=== PATIENT | female | born 1985 | race American Indian/Alaskan Native ===

== ENCOUNTER 2017-10-06 09:44 | Emergency (ER) | payer MEDICAID ==
[2017-10-06] MEDS ORDERED: ATIVAN IV ONE (09:49)
[2017-10-06] MEDS ORDERED: ATIVAN ONE (09:52)
[2017-10-06 10:29] LABS: Basophils % (Auto) 0.3 % (0.0-1.8); Eosinophils % (Auto) 0.3 % (0.0-4.3); Hematocrit 27.2 % (30.3-42.9); Hemoglobin 8.3 gm/dl (10.1-14.3); Lymphocytes # (Auto) 0.7 K/mm3 (1.2-5.4); Mean Corpuscular HGB Conc 31 % (30-34); Monocytes # (Auto) 0.3 K/mm3 (0.0-0.8); Monocytes % (Auto) 3.7 % (0.0-7.3); Platelet Count 622 K/mm3 (140-440); Red Blood Count 4.53 M/mm3 (3.65-5.03); Red Cell Distribution Width 18.8 % (13.2-15.2)
[2017-10-06 10:41] LABS: BUN/Creatinine Ratio 22; Blood Urea Nitrogen 13 mg/dL (7-17); Calcium 8.4 mg/dL (8.4-10.2); Hemolysis Index 2
[2017-10-06 10:42] LABS: Mean Corpuscular Hemoglobin 18 pg (28-32); Mean Corpuscular Volume 60 fl (79-97)
[2017-10-06] MEDS ORDERED: DILANTIN 1,000 MG in NACL 0.9% 250ML 250 ML IV ONE (11:06)
--- NOTE | 2017-10-06 13:00 | Emergency Department Report ---
ED Seizure HPI - General Chief Complaint: Seizure Stated Complaint: SEIZURE Time Seen by Provider: 10/06/17 10:02 Source: patient, EMS Mode of arrival: Stretcher Limitations: No Limitations - History of Present Illness Initial Comments: Patient is a 32-year-old [place] female who is presenting to the emergency department with seizure. Patient states she has a history of seizure disorder but has not taken her Dilantin in several months. Patient states she did take her Dilantin is warranted because she felt weird. Patient states she has some weird sensation in her hands and feet that she says is similar to when she's had seizures in the past. Patient took one Dilantin. Patient states that she is somewhat sleepy at this time after receiving Ativan for her last seizure was in route. Patient denies any headache fevers chills neck stiffness at this time. - Related Data Home Medications Medication Instructions Recorded Confirmed Last Taken Phenytoin [Dilantin] 300 mg PO BID 05/14/16 05/14/16 04/16/16 10:00 300 MG Previous Rx's Medication Instructions Recorded Last Taken Type levETIRAcetam [Keppra TAB] 500 mg PO BID #60 tablet 05/14/16 Unknown Rx Phenytoin Sodium Extended 100 mg PO TID #90 capsule 10/06/17 Unknown Rx [Dilantin] Allergies Allergy/AdvReac Type Severity Reaction Status Date / Time Penicillins Allergy Swelling Verified 10/06/17 11:54 ED Review of Systems ROS: Stated complaint: SEIZURE Other details as noted in HPI Comment: All other systems reviewed and negative ED Past Medical Hx - Past Medical History Previous Medical History?: Yes Hx Seizures: Yes - Surgical History Hx Appendectomy: Yes - Social History Smoking Status: Never Smoker Substance Use Type: None - Medications Home Medications: Home Medications Medication Instructions Recorded Confirmed Last Taken Type Phenytoin [Dilantin] 300 mg PO BID 05/14/16 05/14/16 04/16/16 10:00 History 300 MG levETIRAcetam [Keppra TAB] 500 mg PO BID #60 tablet 05/14/16 Unknown Rx Phenytoin Sodium Extended 100 mg PO TID #90 capsule 10/06/17 Unknown Rx [Dilantin] ED Physical Exam - General Limitations: No Limitations General appearance: alert, in no apparent distress - Head Head exam: Present: atraumatic, normocephalic - Eye Eye exam: Present: normal appearance - ENT ENT exam: Present: mucous membranes moist - Neck Neck exam: Present: normal inspection - Respiratory Respiratory exam: Present: normal lung sounds bilaterally. Absent: respiratory distress, wheezes, rales, rhonchi - Cardiovascular Cardiovascular Exam: Present: regular rate, normal rhythm. Absent: systolic murmur, diastolic murmur, rubs, gallop - GI/Abdominal GI/Abdominal exam: Present: soft, normal bowel sounds. Absent: distended, tenderness, guarding - Extremities Exam Extremities exam: Present: normal inspection - Back Exam Back exam: Present: normal inspection - Neurological Exam Neurological exam: Present: alert, oriented X3, CN II-XII intact, reflexes normal. Absent: motor sensory deficit - Psychiatric Psychiatric exam: Present: normal affect, normal mood - Skin Skin exam: Present: warm, dry, intact, normal color. Absent: rash ED Course Vital Signs 10/06/17 10/06/17 10:09 10:14 Temperature 100.4 F H Pulse Rate 110 H Respiratory 16 Rate Blood Pressure 113/84 Blood Pressure 113/84 [Right] O2 Sat by Pulse 100 100 Oximetry ED Medical Decision Making - Lab Data Result diagrams: 10/06/17 10:20 10/06/17 10:17 - Medical Decision Making Patient was loaded with 1 g of Dilantin will be discharged home with a prescription. Patient has had no further seizure activity here in our emergency department. Critical care attestation.: If time is entered above; I have spent that time in minutes in the direct care of this critically ill patient, excluding procedure time. ED Disposition Clinical Impression: Seizure Disposition: DC-01 TO HOME OR SELFCARE Is pt being admited?: No Does the pt Need Aspirin: No Condition: Stable Instructions: Epilepsy (ED) Prescriptions: Phenytoin Sodium Extended [Dilantin] 100 mg PO TID #90 capsule Referrals: PRIMARY CARE, [Primary Care Provider] - 3-5 Days
[2017-10-06] MEDS ORDERED: NORCO 5/325 ONE (14:06)
[2017-10-06] MEDS ORDERED: NORCO 5/325 PO ONE (14:14)
[2017-10-06 14:33] VITALS: BP 125/77
== END 2017-10-06 14:30 | disposition home or self-care (01) ==
LOC: ED 09:44
DX: G40.909 Epilepsy, unspecified, not intractable, without status epilepticus (principal); Z88.0 Allergy status to penicillin
CPT/HCPCS: 36415; 80048; 82962; 85025; 96365; 96375; 99285; J1165; J2060; J7050; 99284

== ENCOUNTER 2018-06-08 06:06 | Emergency (ER) | payer SELFPAY ==
[2018-06-08 06:35] LABS: Mean Corpuscular HGB Conc 29 % (30-34); Platelet Count 668 K/mm3 (140-440); Red Blood Count 4.45 M/mm3 (3.65-5.03)
--- NOTE | 2018-06-08 06:36 | Emergency Department Report ---
ED Seizure HPI - General Chief Complaint: Seizure Stated Complaint: SEIZURES Time Seen by Provider: 06/08/18 06:15 Source: EMS Mode of arrival: Stretcher Limitations: No Limitations - History of Present Illness Initial Comments: Patient is a 33-year-old female presents to emergency room with complaints of recent seizure activity. Patient states she has a known history of seizures and has been taking her medications. Patient states she felt a seizure coming on and she laid on the floor. Patient denies trauma. Patient denies precipitating event. She denies chest pain shortness of breath. Patient denies any physical complaints. Patient states she is feeling tired from the medications given by EMS. In route EMS gave patient 2.5 mg IM of Versed. MD Complaint: seizure -: Sudden Description of Episode: loss of consciousness, tonic-clonic movement -: second(s) Witnessed:: Yes Trauma: No Seizure History: known seizure disorder, history of non-compliance Place: home Possible Precipitating Event: none Associated Symptoms: denies: chest pain, confusion, cough, diaphoresis, fever/chills, loss of appetite, malaise, rash, shortness of breath, syncope, weakness, tongue injury, shoulder dislocation Treatments Prior to Arrival: benzodiazepines - Related Data Home Medications Medication Instructions Recorded Confirmed Last Taken Phenytoin [Dilantin] 300 mg PO BID 05/14/16 05/14/16 04/16/16 10:00 300 MG Previous Rx's Medication Instructions Recorded Last Taken Type Phenytoin Sodium Extended 100 mg PO TID 15 Days #45 capsule 06/08/18 Unknown Rx [Dilantin] levETIRAcetam [Keppra TAB] 500 mg PO BID 15 Days #30 tablet 06/08/18 Unknown Rx Allergies Allergy/AdvReac Type Severity Reaction Status Date / Time Penicillins Allergy Swelling Verified 10/06/17 11:54 ED Review of Systems ROS: Stated complaint: SEIZURES Other details as noted in HPI Constitutional: denies: chills, fever Eyes: denies: eye pain, eye discharge, vision change ENT: denies: ear pain, throat pain Respiratory: denies: cough, shortness of breath, wheezing Cardiovascular: denies: chest pain, palpitations Endocrine: no symptoms reported Gastrointestinal: denies: abdominal pain, nausea, diarrhea Genitourinary: denies: urgency, dysuria, discharge Musculoskeletal: denies: back pain, joint swelling, arthralgia Skin: denies: rash, lesions Neurological: denies: headache, weakness, paresthesias Psychiatric: denies: anxiety, depression Hematological/Lymphatic: denies: easy bleeding, easy bruising ED Past Medical Hx - Past Medical History Previous Medical History?: Yes Hx Seizures: Yes - Surgical History Past Surgical History?: Yes Hx Appendectomy: Yes - Family History Family history: no significant - Social History Smoking Status: Never Smoker Substance Use Type: None - Medications Home Medications: Home Medications Medication Instructions Recorded Confirmed Last Taken Type Phenytoin [Dilantin] 300 mg PO BID 05/14/16 05/14/16 04/16/16 10:00 History 300 MG Phenytoin Sodium Extended 100 mg PO TID 15 Days #45 capsule 06/08/18 Unknown Rx [Dilantin] levETIRAcetam [Keppra TAB] 500 mg PO BID 15 Days #30 tablet 06/08/18 Unknown Rx ED Physical Exam - General Limitations: No Limitations General appearance: alert, in no apparent distress - Head Head exam: Present: atraumatic, normocephalic - Eye Eye exam: Present: normal appearance - ENT ENT exam: Present: mucous membranes moist - Neck Neck exam: Present: normal inspection - Respiratory Respiratory exam: Present: normal lung sounds bilaterally. Absent: respiratory distress - Cardiovascular Cardiovascular Exam: Present: regular rate, normal rhythm. Absent: systolic murmur, diastolic murmur, rubs, gallop - GI/Abdominal GI/Abdominal exam: Present: soft, normal bowel sounds - Extremities Exam Extremities exam: Present: normal inspection - Back Exam Back exam: Present: normal inspection - Neurological Exam Neurological exam: Present: alert, oriented X3 - Psychiatric Psychiatric exam: Present: normal affect, normal mood - Skin Skin exam: Present: warm, dry, intact, normal color. Absent: rash ED Course Vital Signs 06/08/18 06/08/18 06/08/18 06:09 06:11 06:15 Temperature 98.4 F Pulse Rate 108 H 108 H Respiratory 18 16 Rate Blood Pressure 131/90 Blood Pressure 131/90 [Left] O2 Sat by Pulse 100 98 100 Oximetry 06/08/18 06/08/18 06/08/18 06:31 06:32 06:45 Temperature Pulse Rate 101 H 107 H Respiratory 30 H 18 32 H Rate Blood Pressure 131/90 131/90 Blood Pressure [Left] O2 Sat by Pulse 99 100 Oximetry 06/08/18 06/08/18 06/08/18 07:01 07:15 07:30 Temperature Pulse Rate 90 107 H 92 H Respiratory 25 H 16 28 H Rate Blood Pressure 131/90 136/84 Blood Pressure [Left] O2 Sat by Pulse 100 100 100 Oximetry 06/08/18 06/08/18 06/08/18 07:45 08:00 08:15 Temperature Pulse Rate 96 H 98 H 98 H Respiratory 25 H 25 H 24 Rate Blood Pressure 136/84 122/80 122/80 Blood Pressure [Left] O2 Sat by Pulse 100 100 99 Oximetry 06/08/18 06/08/18 06/08/18 08:30 08:45 09:00 Temperature Pulse Rate 92 H 97 H 108 H Respiratory 27 H 26 H 22 Rate Blood Pressure 135/81 135/81 134/86 Blood Pressure [Left] O2 Sat by Pulse 100 100 100 Oximetry 06/08/18 06/08/18 06/08/18 09:15 09:30 09:45 Temperature Pulse Rate 93 H 92 H Respiratory 25 H 25 H 20 Rate Blood Pressure 134/86 146/89 146/89 Blood Pressure [Left] O2 Sat by Pulse 100 100 100 Oximetry - Reevaluation(s) Reevaluation #1: Initial evaluation done. Patient answering all questions appropriately. Patient was monitored. Patient has history of seizure. We'll check seizure medication levels. Nurse unable to obtain IV line, right EJ placed. See procedure note 06/08/18 06:36 Discussed all results with patient. Patient states she has not been taking her medications as prescribed. Patient will be given a gram of Keppra discharged home 06/08/18 09:44 Patient answering all questions appropriately. Patient is stable for discharge. Patient given discharge instructions. Patient can return to ER instructions. Patient GIVEN medication instructions. She voiced understanding of all ins tructions. 06/08/18 09:55 - EJ/Peripheral Line Neck R Time Out Performed: Yes Indications: nurses unable to establis Skin Cleansed in Sterile Fashion: Yes Size: 20 Dressing Placed: Tegaderm, tape Patient Tolerated Procedure: well ED Medical Decision Making - Lab Data Result diagrams: 06/08/18 06:24 06/08/18 06:24 - EKG Data -: EKG Interpreted by Me EKG shows normal: sinus rhythm, axis, intervals, QRS complexes, ST-T waves Rate: tachycardia - Medical Decision Making Patient is a 33-year-old female presents July with seizure. Patient was given Versed in route by EMS. Patient has not had any seizure activity in the ER. Jean-Pierre mckenzie states she has not been taking medications as directed. Patient states she needs refills. Patient to get refills of her medications. Patient was given IV Keppra. Labs are essentially unremarkable. Patient stable for discharge. Patient discharged home with prescriptions. - Differential Diagnosis seizure. Noncompliance. Critical care attestation.: If time is entered above; I have spent that time in minutes in the direct care of this critically ill patient, excluding procedure time. ED Disposition Clinical Impression: Seizure, Noncompliance with medication regimen Disposition: TO HOME OR SELFCARE Is pt being admited?: No Does the pt Need Aspirin: No Condition: Stable Instructions: Epilepsy (ED), Recurrent Seizures Adult (ED) Additional Instructions: Patient to follow up with primary care to 3 days. Patient to follow up with neurologist in 2-3 days. Patient to return to ER if condition worsens. Patient take all meds as directed. Patient to increase water. Patient to avoid driving. Prescriptions: levETIRAcetam [Keppra TAB] 500 mg PO BID 15 Days #30 tablet Phenytoin Sodium Extended [Dilantin] 100 mg PO TID 15 Days #45 capsule Referrals: KAREEM ORO MD [Primary Care Provider] - 2-3 Days Time of Disposition: 09:49
[2018-06-08 06:37] LABS: Hematocrit 27.2 % (30.3-42.9); Hemoglobin 7.8 gm/dl (10.1-14.3); Mean Corpuscular Volume 61 fl (79-97)
[2018-06-08 06:49] LABS: BUN/Creatinine Ratio 23; Blood Urea Nitrogen 14 mg/dL (7-17); Calcium 8.6 mg/dL (8.4-10.2); Hemolysis Index 5
[2018-06-08] MEDS ORDERED: KEPPRA 1,000 MG/NS 0.75% 100ML 1,000 MG/100 ML BAG IV ONE (09:45)
[2018-06-08 11:37] VITALS: BP 132/71
[2018-06-08] MEDS ORDERED: TYLENOL ONE (11:54)
[2018-06-08] MEDS ORDERED: TYLENOL PO ONE (12:01)
== END 2018-06-08 12:51 | disposition home or self-care (01) ==
LOC: ED 06:06
DX: R56.9 Unspecified convulsions (principal); Z90.49 Acquired absence of other specified parts of digestive tract; Z88.0 Allergy status to penicillin
CPT/HCPCS: 36415; 36569; 80048; 85027; 93005; 93010; 96365; 99284; J1953; 82962

== ENCOUNTER 2019-08-23 09:33 | Emergency (ER) | payer OTHER ==
[2019-08-23] MEDS ORDERED: levETIRAcetam 1000 MG/NS 0.75% 1,000 MG/100 ML BAG IV ONE (09:50)
--- NOTE | 2019-08-23 09:57 | Emergency Department Report ---
ED Seizure HPI - General Chief Complaint: Seizure Stated Complaint: SEIZURE Time Seen by Provider: 08/23/19 09:44 Source: patient, EMS Mode of arrival: Stretcher Limitations: No Limitations - History of Present Illness Initial Comments: Mrs. Gill is a 34-year-old female with history of epilepsy who presents with seizure, chest pain and possible . She presents via EMS. She has not taken her seizure medicine for the past 2 years. She has had intermittent throbbing chest pain at rest which relieved with Tylenol. No associated shortness of breath palpitations or fever. No cough. Her last menstrual period was in April. She has a positive home test. Has had seizures since the age of 10. MD Complaint: seizure -: Sudden Witnessed:: Yes Seizure History: known seizure disorder Place: home Possible Precipitating Event: other (Not taking medications) Treatments Prior to Arrival: none - Related Data Home Medications Medication Instructions Recorded Confirmed Last Taken Phenytoin [Dilantin] 300 mg PO BID 05/14/16 05/14/16 04/16/16 10:00 300 MG Previous Rx's Medication Instructions Recorded Last Taken Type Phenytoin Sodium Extended 100 mg PO TID 15 Days #45 capsule 06/08/18 Unknown Rx [Dilantin] levETIRAcetam [Keppra TAB] 500 mg PO BID 15 Days #30 tablet 06/08/18 Unknown Rx levETIRAcetam [Keppra TAB] 500 mg PO BID 30 Days #60 tablet 08/23/19 Unknown Rx Allergies Allergy/AdvReac Type Severity Reaction Status Date / Time Penicillins Allergy Swelling Verified 10/06/17 11:54 ED Review of Systems ROS: Stated complaint: SEIZURE Other details as noted in HPI Comment: All other systems reviewed and negative Constitutional: denies: chills, fever, malaise Respiratory: denies: cough, shortness of breath Cardiovascular: chest pain Neurological: denies: headache, weakness, paresthesias ED Past Medical Hx - Past Medical History Previous Medical History?: Yes Hx Seizures: Yes - Surgical History Past Surgical History?: Yes Hx Appendectomy: Yes - Social History Smoking Status: Unknown if ever smoked - Medications Home Medications: Home Medications Medication Instructions Recorded Confirmed Last Taken Type Phenytoin [Dilantin] 300 mg PO BID 05/14/16 05/14/16 04/16/16 10:00 History 300 MG Phenytoin Sodium Extended 100 mg PO TID 15 Days #45 capsule 06/08/18 Unknown Rx [Dilantin] levETIRAcetam [Keppra TAB] 500 mg PO BID 15 Days #30 tablet 06/08/18 Unknown Rx levETIRAcetam [Keppra TAB] 500 mg PO BID 30 Days #60 tablet 08/23/19 Unknown Rx ED Physical Exam - General Limitations: No Limitations General appearance: alert, in no apparent distress - Head Head exam: Present: atraumatic, normocephalic - Eye Eye exam: Present: normal appearance - ENT ENT exam: Present: mucous membranes moist - Neck Neck exam: Present: normal inspection, full ROM - Respiratory Respiratory exam: Present: normal lung sounds bilaterally. Absent: respiratory distress, wheezes, rales, rhonchi - Cardiovascular Cardiovascular Exam: Present: regular rate, normal rhythm, normal heart sounds. Absent: systolic murmur, diastolic murmur, rubs, gallop - GI/Abdominal GI/Abdominal exam: Present: soft, normal bowel sounds. Absent: distended, t enderness, guarding, rebound - Extremities Exam Extremities exam: Present: normal inspection - Neurological Exam Neurological exam: Present: alert, oriented X3 - Psychiatric Psychiatric exam: Present: normal affect, normal mood - Skin Skin exam: Present: warm, dry, intact, normal color. Absent: rash ED Course Vital Signs 08/23/19 08/23/19 08/23/19 09:43 09:46 10:04 Temperature Pulse Rate Respiratory Rate Blood Pressure 145/71 145/71 Blood Pressure [Right] O2 Sat by Pulse 98 100 100 Oximetry 08/23/19 08/23/19 08/23/19 10:06 10:16 10:30 Temperature 98.7 F Pulse Rate 100 H 83 Respiratory 16 18 28 H Rate Blood Pressure 133/80 133/80 Blood Pressure 145/71 [Right] O2 Sat by Pulse 100 96 99 Oximetry 08/23/19 08/23/19 08/23/19 10:46 11:00 11:16 Temperature Pulse Rate 73 85 89 Respiratory 26 H 26 H 21 Rate Blood Pressure 139/64 139/64 140/76 Blood Pressure [Right] O2 Sat by Pulse 97 97 95 Oximetry 08/23/19 08/23/19 08/23/19 11:30 11:46 12:00 Temperature Pulse Rate 99 H 81 91 H Respiratory 29 H 13 30 H Rate Blood Pressure 140/76 135/68 135/68 Blood Pressure [Right] O2 Sat by Pulse 96 100 100 Oximetry 08/23/19 08/23/19 08/23/19 12:16 12:30 12:46 Temperature Pulse Rate 89 86 83 Respiratory 16 17 18 Rate Blood Pressure 136/78 136/78 136/74 Blood Pressure [Right] O2 Sat by Pulse 100 100 99 Oximetry ED Medical Decision Making - Lab Data Result diagrams: 08/23/19 10:14 08/23/19 10:14 - EKG Data EKG shows normal: sinus rhythm, axis, intervals, QRS complexes, ST-T waves Rate: normal - EKG Data Interpretation: normal EKG - Medical Decision Making 1. Seizure disorder patient has not taken antiepileptic medication for 2 years. Patient received IV Keppra load. Referred to neurologist. Prescribed Keppra 2. , patient does not currently have abdominal pain to indicate possible ectopic . Referred to magnetic tape composer operator. 3. Nonspecific chest pain most likely indigestion I do not suspect pneumonia pulmonary embolism or acute cardiac disease Discharged home Critical care attestation.: If time is entered above; I have spent that time in minutes in the direct care of this critically ill patient, excluding procedure time. ED Disposition Clinical Impression: Seizure, Epilepsy, , Chest pain Disposition: - TO HOME OR SELFCARE Is pt being admited?: No Does the pt Need Aspirin: No Condition: Stable Instructions: Chest Pain (ED) Additional Instructions: Your test is positive. Please see your magnetic tape composer operator. You also will need a neurologist for medical clearance. Please call the numbers provided. Prescriptions: levETIRAcetam [Keppra TAB] 500 mg PO BID 30 Days #60 tablet Referrals: ALYSSA FOREMAN MD [Staff Physician] - 3-5 Days MARIANNA MAY MD [Staff Physician] - 3-5 Days
[2019-08-23 10:54] LABS: Basophils # (Auto) 0.1 K/mm3 (0.0-0.1); Basophils % (Auto) 1.1 % (0.0-1.8); Eosinophils # (Auto) 0.1 K/mm3 (0.0-0.4); Eosinophils % (Auto) 0.7 % (0.0-4.3); Hematocrit 25.9 % (30.3-42.9); Lymphocytes # (Auto) 1.1 K/mm3 (1.2-5.4); Lymphocytes % (Auto) 11.7 % (13.4-35.0); Mean Corpuscular HGB Conc 31 % (30-34); Monocytes # (Auto) 0.4 K/mm3 (0.0-0.8); Monocytes % (Auto) 4.3 % (0.0-7.3); Platelet Count 745 K/mm3 (140-440); Red Blood Count 4.29 M/mm3 (3.65-5.03); Red Cell Distribution Width 19.8 % (13.2-15.2)
[2019-08-23 10:56] LABS: Mean Corpuscular Volume 60 fl (79-97)
[2019-08-23 11:08] LABS: Alanine Aminotransferase 12 units/L (7-56); Albumin 3.7 g/dL (3.9-5); BUN/Creatinine Ratio 15; Blood Urea Nitrogen 9 mg/dL (7-17); Calcium 9.1 mg/dL (8.4-10.2); Hemolysis Index 13
[2019-08-23 14:43] VITALS: BP 146/70
== END 2019-08-23 14:44 | disposition home or self-care (01) ==
LOC: ED 09:33
DX: O99.351 Diseases of the nervous system complicating pregnancy, first trimester (principal); G40.909 Epilepsy, unspecified, not intractable, without status epilepticus; R07.9 Chest pain, unspecified; Z79.899 Other long term (current) drug therapy; Z88.0 Allergy status to penicillin; Z90.49 Acquired absence of other specified parts of digestive tract; Z3A.01 Less than 8 weeks gestation of pregnancy
CPT/HCPCS: 36415; 80053; 84702; 85025; 93005; 93010; 96365; 99284; J1953

== ENCOUNTER 2020-01-31 19:05 | Outpatient (CLI) | payer OTHER ==
[2020-01-31] MEDS ORDERED: LACTATED RINGERS 1,000 ML IV ONE (20:21)
[2020-01-31 20:32] VITALS: BP 135/72
[2020-01-31 21:51] LABS: Bilirubin,Urine NEG (Negative); Blood,Urine SM (Negative); Color,Urine Yellow (Yellow); Mucus,Urine FEW /HPF; Protein,Urine <15 mg/dL mg/dL (Negative)
== END 2020-01-31 22:40 | disposition home or self-care (01) ==
LOC: TRG 19:05 → LD 19:36 → TRG 22:40
PROVIDERS: ATTEND Obstetrics & Gynecology
DX: O26.893 Other specified pregnancy related conditions, third trimester (principal); R10.9 Unspecified abdominal pain; O21.2 Late vomiting of pregnancy; O09.523 Supervision of elderly multigravida, third trimester; O47.03 False labor before 37 completed weeks of gestation, third trimester; Z3A.31 31 weeks gestation of pregnancy
CPT/HCPCS: 59025; 81001; 96360; J7120

== ENCOUNTER 2020-02-01 11:28 | Outpatient (CLI) | payer OTHER ==
[2020-02-01 11:47] VITALS: BP 133/77
[2020-02-01] MEDS ORDERED: LACTATED RINGERS 1,000 ML IV SCH (12:00)
[2020-02-01 12:38] LABS: Amphetamine Screen,Urine Negative; Benzodiazepines Screen,Urine Negative; Cannabinoid Screen,Urine Negative; Cocaine Screen,Urine Negative; Methadone Screen,Urine Negative; Opiate Screen,Urine Negative
[2020-02-01 12:50] LABS: Bacteria,Urine 1+ /HPF (Negative); Bilirubin,Urine NEG (Negative); Blood,Urine SM (Negative); Color,Urine Straw (Yellow); Mucus,Urine FEW /HPF; Protein,Urine <15 mg/dL mg/dL (Negative); Urobilinogen,Urine < 2.0 mg/dL (<2.0)
[2020-02-01] MEDS ORDERED: ACETAMINOPHEN 500 MG TAB PO ONE (13:09)
[2020-02-01] MEDS ORDERED: ONDANSETRON 4 MG/2 ML INJ IV ONE (13:10)
== END 2020-02-01 16:09 | disposition home or self-care (01) ==
LOC: TRG 11:28 → APU 11:29 → TRG 16:09
PROVIDERS: ATTEND Obstetrics & Gynecology
DX: O26.893 Other specified pregnancy related conditions, third trimester (principal); R10.9 Unspecified abdominal pain; O09.523 Supervision of elderly multigravida, third trimester; Z3A.31 31 weeks gestation of pregnancy
CPT/HCPCS: 59025; 80307; 81001; 87086; 96361; 96374; J2405; J7120; 96360

== ENCOUNTER 2020-03-18 09:59 | Inpatient (IN) | payer OTHER ==
[2020-03-18] MEDS ORDERED: MINERAL OIL 30 ML ORAL LIQD PO PRN (11:14)
[2020-03-18] MEDS ORDERED: TERBUTALINE 1 MG/1 ML INJ SUB-Q PRN ×2 (11:14→21:24)
[2020-03-18] MEDS ORDERED: LIDOCAINE (2%) 20 MG/1 ML VIAL 20 ML MDV INFILTRATI ONE ×2 (11:14→21:24)
[2020-03-18] MEDS ORDERED: ePHEDrine SULFATE 50 MG/1 ML INJ IV PRN (11:14)
[2020-03-18] MEDS ORDERED: LACTATED RINGERS 1,000 ML IV SCH (12:00)
[2020-03-18] MEDS ORDERED: MAGNESIUM SULFATE 4 GM/100 ML BAG IV ONE (12:00)
[2020-03-18] MEDS ORDERED: OXYTOCIN DRIP 30 UNITS/500 ML BAG IV SCH (12:00)
[2020-03-18] MEDS ORDERED: DINOPROSTONE 10 MG VAG SUPP VG ONE ×2 (13:00→21:10)
[2020-03-18] MEDS: MAGNESIUM SULFATE 40GM/1000ML 40 GM/1,000 ML BAG IV SCH (13:29)
--- NOTE | 2020-03-18 13:43 | History and Physical Report ---
History of Present Illness Date of examination: 03/18/20 Date of admission: 03/18/20 Chief complaint: contractions History of present illness: Pt is a 35 year old -[place] female JUSTICE 04/01/20 at 38w0d who initially presents c/o "I just don't feel right" and contractions. She was noted to be paul minimally and to be 1 cm dilated but she had a seizure while in triage and her BP was noted to be 150-180s/80s. She does report a h/o seizure disorder since age 9 being prescribed Dilantin "two pills" per day but her last dose was two weeks ago because the medication is too expensive. She reports late care at [facility] due to insurance issues, complicated by glucose intolerance but with a normal 3 hr test. She denies a h/o hypertension. records are not available at this time. GBS status is unknown. Pt does report a h/o PIH in a prior . Past History Past Medical History: seizure (Dilantin, unknown dose, last taken one week ago ) Past Surgical History: appendectomy Family/Genetic History: hypertension Social history: no significant social history - Obstetrical History Expected Date of Delivery: 04/01/20 Actual Gestation: 38 Week(s) 0 Day(s) : 3 Para: 2 Hx # Term Pregnancies: 2 Number of Pregnancies: 0 Spontaneous Abortions: 0 Induced : 0 Number of Living Children: 2 Medications and Allergies Allergies Allergy/AdvReac Type Severity Reaction Status Date / Time Penicillins Allergy Swelling Verified 10/06/17 11:54 Home Medications Medication Instructions Recorded Confirmed Last Taken Type Phenytoin [Dilantin] 300 mg PO BID 05/14/16 03/18/20 04/16/16 10:00 History 300 MG Phenytoin Sodium Extended 100 mg PO TID 15 Days #45 capsule 06/08/18 03/18/20 Unknown Rx [Dilantin] levETIRAcetam [Keppra TAB] 500 mg PO BID 15 Days #30 tablet 06/08/18 03/18/20 03/18/20 Rx 500 levETIRAcetam [Keppra TAB] 500 mg PO BID 30 Days #60 tablet 08/23/19 03/18/20 Unknown Rx Active Meds: Active Medications Ephedrine Sulfate (Ephedrine Sulfate) 10 mg IV Q2M PRN PRN Reason: Hypotension Lactated Ringer's (Lactated Ringers) 1,000 mls @ 125 mls/hr IV DIRECT YOSELIN Oxytocin/Sodium Chloride (Pitocin/Ns 30 Unit/500ml) 30 units in 500 mls @ 40 mls/hr IV TITR YOSELIN; Protocol Clindamycin HCl (Cleocin 900 Mg/50 Ml) 900 mg in 50 mls @ 100 mls/hr IV Q8H YOSELIN; Protocol Magnesium Sulfate (Magnesium Sulfate 40gm/1000ml) 40 gm in 1,000 mls @ 50 mls/hr IV DIRECT YOSELIN Last Admin: 03/18/20 13:29 Dose: 2 gm/hr, 50 mls/hr Documented by: Mineral Oil (Mineral Oil) 30 ml PO QHS PRN PRN Reason: Constipation Terbutaline Sulfate (Brethine) 0.25 mg SUB-Q ONCE PRN PRN Reason: Hyperstimulation/Hypertonicity Review of Systems All systems: negative - Vital Signs Vital signs: Vital Signs Pulse Pulse Ox 73 100 03/18/20 10:37 03/18/20 10:37 Temp Pulse Resp BP Pulse Ox 98.2 F 77 20 141/72 100 03/18/20 11:10 03/18/20 13:39 03/18/20 11:10 03/18/20 13:32 03/18/20 13:39 - Physical Exam Breasts: Positive: deferred Abdomen: Positive: soft (gravid ) Uterus: Positive: enlarged (gravid ) - Obstetrical FHR: category 1 Uterine Contraction Monitor Mode: External Cervical Dilatation: 1 (per RN ) Cervical Effacement Percentage: 40 Results Result Diagrams: 03/18/20 17:10 03/18/20 17:10 All other labs normal. Assessment and Plan A: IUP at 38w0d Eclampsia Seizure Disorder Glucose Intolerance GBS unknown- PCN allergy P: Admit to labor and delivery IV Magnesium Sulfate for seizure prophylaxis PIH labs labs Attempt to obtain prenatals Ultrasound to verify gestational age Clindamycin for GBS prophylaxis Cloesly monitor maternal and status
[2020-03-18 16:20] LABS: Bacteria,Urine 1+ /HPF (Negative); Bilirubin,Urine NEG (Negative); Blood,Urine NEG (Negative); Color,Urine Yellow (Yellow); Mucus,Urine FEW /HPF; Protein,Urine <15 mg/dL mg/dL (Negative); Urobilinogen,Urine < 2.0 mg/dL (<2.0)
[2020-03-18 16:29] LABS: Amphetamine Screen,Urine PRESUMPTIVE NEGATIVE; Benzodiazepines Screen,Urine PRESUMPTIVE NEGATIVE; Cannabinoid Screen,Urine PRESUMPTIVE NEGATIVE; Cocaine Screen,Urine PRESUMPTIVE NEGATIVE; Methadone Screen,Urine PRESUMPTIVE NEGATIVE; Opiate Screen,Urine PRESUMPTIVE NEGATIVE
[2020-03-18 18:14] LABS: Hematocrit 25.2 % (30.3-42.9); Hemoglobin 7.6 gm/dl (10.1-14.3); Mean Corpuscular HGB Conc 30 % (30-34); Platelet Count 541 K/mm3 (140-440); Red Cell Distribution Width 19.1 % (13.2-15.2)
[2020-03-18 18:20] LABS: Mean Corpuscular Volume 60 fl (79-97)
[2020-03-18 18:33] LABS: Alanine Aminotransferase 10 units/L (7-56)
[2020-03-18 18:38] LABS: Hepatitis C Virus Antibody Non-Reactive (NonReactive)
[2020-03-18] MEDS ORDERED: NALOXONE 0.4 MG/1 ML INJ IV PRN (21:24)
[2020-03-18] MEDS ORDERED: ONDANSETRON 4 MG/2 ML INJ IV PRN (21:24)
[2020-03-18] MEDS ORDERED: miSOPROStol 200 MCG TAB PR PRN (21:24)
--- NOTE | 2020-03-18 21:28 | Event Note ---
Date: 03/18/20 Ultrasound reports delay with report of greater than 6 hours. Report now available indicating cephalic fetus and confirming stated gestational age. Plan to proceed with induction of labor with cervidil.
[2020-03-19] MEDS ORDERED: miSOPROStol 25 MCG TAB ONE ×3 (11:16→13:07)
[2020-03-19] MEDS ORDERED: fentaNYL 100 MCG/2 ML INJ ONE (13:00)
[2020-03-19] MEDS ORDERED: MAGNESIUM SULFATE 40 GM/1000 ML IV ONE (13:00)
[2020-03-19] MEDS ORDERED: LACTATED RINGERS 1000 ML IV SOLN ONE (13:00)
[2020-03-19] MEDS ORDERED: CLINDAMYCIN/D5W 900 MG/50 ML IVPB IV ONE (13:00)
[2020-03-19] MEDS: fentaNYL 100 MCG/2 ML INJ IV PRN ×2 (18:13→21:47)
[2020-03-19] MEDS: PHENYTOIN 100 MG CAPSULE.ER PO SCH ×2 (21:29→21:30)
[2020-03-19] MEDS: miSOPROStol 25 MCG TAB VG PRN (21:30)
[2020-03-20] MEDS: miSOPROStol 25 MCG TAB VG PRN (02:01)
[2020-03-20] MEDS: fentaNYL 100 MCG/2 ML INJ IV PRN ×2 (02:02→16:10)
[2020-03-20] MEDS: LACTATED RINGERS 1,000 ML IV SCH ×2 (02:08→15:48)
[2020-03-20] MEDS ORDERED: OXYTOCIN DRIP 30 UNITS/500 ML BAG IV SCH ×2 (06:00→19:00)
[2020-03-20] MEDS: MAGNESIUM SULFATE 40GM/1000ML 40 GM/1,000 ML BAG IV SCH (06:51)
[2020-03-20] MEDS: BUTORPHANOL 2 MG/1 ML INJ IV PRN ×2 (07:20→13:03)
--- NOTE | 2020-03-20 09:45 | Ultrasound Report ---
US OB limited INDICATION: limited PNC. TECHNIQUE: Transabdominal. COMPARISON: None available. FINDINGS: There is a single intrauterine . Biparietal Diameter = 8.8 cm Head Circumference = 31.3 cm Abdominal Circumference = 27.3 cm Femur Length = 6.7 cm Average Ultrasound Age (AUA) = 32 weeks, 6 day(s). Heart Rate: 116 beats per minute. Estimated Weight in grams (if calculated): 1958 Position: cephalic. Cervix: Not well-visualized. Placenta: anterior and free of the os. Amniotic Fluid Volume: normal Amniotic Fluid Index (TEJAS) in cm (if calculated): 13.2. Maternal Adnexa: No significant abnormality. IMPRESSION: 1. Single, living intrauterine with estimated sonographic age of 32 weeks, 6 day(s). 2. No significant sonographic abnormality. Signer Name: Oswaldo Cabral MD Signed: 03/18/2020 3:25 PM Workstation Name: [id number]
--- NOTE | 2020-03-20 10:02 | Event Note ---
Date: 03/20/20 SVE 3. Cook catheter placed, each balloon inflated with 60cc of sterile water. Dr. Corea aware of patient's status.
[2020-03-20] MEDS: PHENYTOIN 100 MG CAPSULE.ER PO SCH ×3 (10:52→22:19)
--- NOTE | 2020-03-20 18:11 | Procedure Note ---
OB Delivery Note - Delivery Date of Delivery: 03/20/20 Surgeon: KIM ROBLES Estimated blood loss: 200cc - Vaginal Delivery presentation: vertex Delivery position: OA Intrapartum events: preeclampsia, decreased FHT variability Delivery induction: none Delivery augmentation: rupture of membranes, pitocin Delivery monitor: external FHT, external uterine Route of delivery: Delivery placenta: spontaneous Episiotomy: none Delivery laceration: other (Midline periurethral hemostatic ) Anesthesia: intravenous - Infant A at 1 minute: 6 at 5 minutes: 9 Gender: Male (2136g (4lb 11.3 oz) @ 1742 pm)
[2020-03-20] MEDS ORDERED: BENZOCAINE/MENTHOL 20/0.5% TOP SPRAY 56 GM TP PRN (18:12)
[2020-03-20] MEDS ORDERED: ONDANSETRON 4 MG/2 ML INJ IV PRN (18:12)
[2020-03-20] MEDS ORDERED: MAGNESIUM HYDROXIDE (MOM) ORAL LIQD UDC PO PRN (18:12)
[2020-03-20] MEDS ORDERED: PROMETHAZINE 25 MG RECT SUPP PR PRN (18:12)
[2020-03-20] MEDS ORDERED: WITCH HAZEL/ GLYCERIN PAD TP PRN (18:12)
[2020-03-20] MEDS ORDERED: PROMETHAZINE 25 MG TAB PO PRN (18:12)
[2020-03-20] MEDS ORDERED: ACETAMINOPHEN 325 MG TAB PO PRN (18:12)
[2020-03-20] MEDS ORDERED: LANOLIN/ZINC/DIMETHICONE (LANSINOH) 7 GM TP PRN ×2 (18:12)
[2020-03-20] MEDS ORDERED: HYDROcodone/ACETAMINOPHEN 5-325 MG TAB PO PRN (18:12)
[2020-03-20] MEDS ORDERED: diphenhydrAMINE 25 MG CAP PO PRN (18:12)
[2020-03-20] MEDS ORDERED: IBUPROFEN 600 MG TAB PO SCH (19:00)
[2020-03-20] MEDS: IBUPROFEN 800 MG TAB PO SCH (22:22)
[2020-03-20] MEDS: FERROUS SULFATE 325 MG TAB PO SCH (22:23)
[2020-03-21] MEDS: MAGNESIUM SULFATE 40GM/1000ML 40 GM/1,000 ML BAG IV SCH (02:26)
[2020-03-21] MEDS: LACTATED RINGERS 1,000 ML IV SCH (02:26)
[2020-03-21] MEDS ORDERED: MEASLES, MUMPS & RUBELLA 12,500 UNIT/0.5 ML VACCINE SUB-Q ONE (06:00)
[2020-03-21] MEDS ORDERED: DIPHtheria,PERTUSSIS(ACELL),TETANUS VACCINE/PF 0.5 ML VIAL IM ONE (06:00)
--- NOTE | 2020-03-21 06:54 | Progress Note ---
Assessment and Plan A: PPD#1 s/p at term Eclampsia on Magnesium sulfate for seizure prophylaxis Seizure Disorder on Dilantin Glucose Intolerance P: Continue magnesium for 24 hours Routine care Subjective - Subjective Date of service: 03/21/20 Principal diagnosis: s/p at term, Eclampsia, Seizure Disorder, IUGR Interval history: Pt doing well overnight. She has no complaints. Patient reports: appetite normal, pain well controlled, no voiding normally (kirkpatrick in place ), no ambulating normally (SCDs in place ) : doing well Objective - Vital Signs Latest vital signs: Vital Signs Temp Pulse Resp BP BP Pulse Ox 03/21/20 04:00 100 H 18 129/64 98 03/21/20 03:59 109 H 129/64 03/21/20 03:43 151 H 123/59 03/21/20 03:28 91 H 128/69 03/21/20 03:13 87 124/68 03/21/20 02:58 89 114/57 03/21/20 02:43 95 H 121/58 03/21/20 02:28 97 H 127/66 03/21/20 00:00 98.4 F 85 18 130/77 98 03/20/20 23:13 85 130/77 03/20/20 22:59 87 122/68 03/20/20 22:43 81 124/77 03/20/20 22:28 85 131/74 03/20/20 22:13 91 H 118/63 03/20/20 21:58 96 H 131/76 03/20/20 21:43 93 H 133/74 03/20/20 21:28 95 H 133/77 03/20/20 21:13 98 H 146/89 03/20/20 20:58 114 H 161/93 03/20/20 20:43 100 H 148/86 03/20/20 20:28 85 134/85 03/20/20 20:13 98 H 133/76 03/20/20 19:58 96 H 137/77 03/20/20 19:43 96 H 128/69 03/20/20 19:28 75 124/71 03/20/20 19:21 71 96 03/20/20 19:16 83 96 03/20/20 19:13 89 132/74 03/20/20 19:11 88 99 03/20/20 19:06 95 H 99 03/20/20 19:01 89 99 03/20/20 19:00 98.9 F 105 H 18 138/59 98 03/20/20 18:58 122 H 138/59 03/20/20 18:56 91 H 97 03/20/20 18:51 102 H 97 03/20/20 18:46 110 H 99 03/20/20 18:43 114 H 142/65 03/20/20 18:41 109 H 98 03/20/20 18:36 91 H 96 03/20/20 18:31 79 96 03/20/20 18:28 92 H 137/66 03/20/20 18:26 89 96 03/20/20 18:21 80 95 03/20/20 18:16 80 96 03/20/20 18:13 81 146/83 03/20/20 18:11 78 98 03/20/20 18:09 72 155/85 03/20/20 18:07 98.3 F 77 18 155/85 95 03/20/20 18:06 75 97 03/20/20 18:01 68 96 03/20/20 17:58 75 150/82 03/20/20 17:56 79 97 03/20/20 17:51 79 97 03/20/20 17:46 79 100 03/20/20 17:41 75 100 03/20/20 17:36 85 100 03/20/20 17:31 86 99 03/20/20 17:26 88 100 03/20/20 17:21 85 100 03/20/20 17:16 82 100 03/20/20 17:11 96 H 100 03/20/20 17:06 89 100 03/20/20 17:01 76 100 03/20/20 17:00 86 49 L 03/20/20 16:56 77 99 03/20/20 16:51 91 H 100 03/20/20 16:46 91 H 100 03/20/20 16:41 76 100 03/20/20 16:36 79 100 03/20/20 16:31 78 100 03/20/20 16:26 88 99 03/20/20 16:21 64 100 03/20/20 16:16 86 100 03/20/20 16:11 79 100 03/20/20 16:06 100 H 100 03/20/20 16:01 71 100 03/20/20 15:56 87 100 03/20/20 15:51 73 100 03/20/20 15:46 81 100 03/20/20 15:41 77 100 03/20/20 15:36 99 H 100 03/20/20 15:31 72 100 03/20/20 15:26 65 100 03/20/20 15:21 75 100 03/20/20 15:16 68 100 03/20/20 15:11 69 100 03/20/20 15:06 68 100 03/20/20 15:01 84 100 03/20/20 14:56 85 100 03/20/20 14:51 89 99 03/20/20 14:46 58 L 100 03/20/20 14:41 85 100 03/20/20 14:36 82 100 03/20/20 14:31 69 100 03/20/20 14:26 81 95 03/20/20 14:21 79 94 03/20/20 14:16 80 97 03/20/20 14:11 98 H 100 03/20/20 14:06 58 L 100 03/20/20 14:01 58 L 100 03/20/20 13:56 78 97 03/20/20 13:51 68 99 03/20/20 13:46 57 L 100 03/20/20 13:41 57 L 100 03/20/20 13:37 57 L 110/62 03/20/20 13:36 59 L 100 03/20/20 13:31 66 94 03/20/20 13:26 60 96 03/20/20 13:21 71 97 03/20/20 13:16 62 100 03/20/20 13:11 58 L 100 03/20/20 13:06 64 100 03/20/20 13:01 74 99 03/20/20 12:56 68 97 03/20/20 12:51 75 100 03/20/20 12:46 65 100 03/20/20 12:41 63 100 03/20/20 12:36 71 100 03/20/20 12:31 81 98 03/20/20 12:26 74 96 03/20/20 12:21 69 99 03/20/20 12:16 66 100 03/20/20 12:11 72 100 03/20/20 12:06 66 100 03/20/20 12:01 64 100 03/20/20 11:56 69 100 03/20/20 11:51 82 100 03/20/20 11:46 79 95 03/20/20 11:41 83 100 03/20/20 11:36 63 100 03/20/20 11:31 67 100 03/20/20 11:26 67 100 03/20/20 11:22 65 132/70 03/20/20 11:21 70 100 03/20/20 11:16 76 100 03/20/20 11:11 74 100 03/20/20 11:06 79 100 03/20/20 11:02 77 140/69 03/20/20 11:01 83 100 03/20/20 10:56 73 100 03/20/20 10:55 70 128/67 03/20/20 10:51 77 99 03/20/20 10:46 60 100 03/20/20 10:41 75 100 03/20/20 10:36 61 100 03/20/20 10:32 66 120/64 03/20/20 10:31 65 100 03/20/20 10:26 75 100 03/20/20 10:21 71 100 03/20/20 10:16 71 100 03/20/20 10:11 67 100 03/20/20 10:06 66 100 03/20/20 10:02 67 138/73 03/20/20 10:01 66 100 03/20/20 09:56 75 100 03/20/20 09:51 66 100 03/20/20 09:46 68 100 03/20/20 09:41 76 96 03/20/20 09:36 84 97 03/20/20 09:32 66 147/89 03/20/20 09:31 72 151/88 95 03/20/20 09:26 85 93 03/20/20 09:21 82 93 03/20/20 09:16 70 96 03/20/20 09:11 76 97 03/20/20 09:06 70 95 03/20/20 09:01 69 95 03/20/20 08:56 75 95 03/20/20 08:51 79 91 03/20/20 08:49 66 135/70 03/20/20 08:46 81 93 03/20/20 08:41 81 95 03/20/20 08:36 70 95 03/20/20 08:31 69 93 03/20/20 08:29 77 136/78 03/20/20 07:55 78 96 03/20/20 07:50 77 93 03/20/20 07:49 76 141/86 03/20/20 07:47 62 89 03/20/20 07:45 70 92 03/20/20 07:40 69 92 03/20/20 07:37 62 89 03/20/20 07:35 80 91 03/20/20 07:30 78 94 03/20/20 07:28 69 89 03/20/20 07:25 74 93 03/20/20 07:23 76 89 03/20/20 07:20 90 97 03/20/20 07:15 85 96 03/20/20 07:10 79 95 03/20/20 07:08 74 129/72 03/20/20 07:07 98.9 F 81 17 129/72 96 03/20/20 07:05 96 H 97 03/20/20 07:00 88 95 03/20/20 06:55 82 97 Intake and Output 03/20/20 03/20/20 03/21/20 14:59 22:59 06:59 Intake Total 7421.230 4185.167 Output Total 5227 102 8489 Balance -615.168 -925 -220.833 Intake: IV 8112.319 2333.167 CLEOCIN 900 MG/50 mL 900 50 mg In 50 ml @ 100 mls/hr IV Q8H YOSELIN Rx#:[id number] Lactated Ringers 1,000 ml 1000 1000 @ 125 mls/hr IV DIRECT YOSELIN Rx#:[id number] MAGNESIUM SULFATE 40GM/ 979.167 1000ML 40 gm In 1,000 ml @ 2 GM/HR 50 mls/hr IV DIRECT YOSELIN Rx#:[id number] PITOCin/NS 30 UNIT/500ML 34.832 30 units In 500 ml @ 2 MILLIUNITS/MIN 2 mls/hr IV TITR YOSELIN Rx#:[id number] Output: Urine 5577 161 7640 Indwelling Catheter 7347 386 1999 Other: Total, Output Amount 150 150 600 Estimated Blood Loss 200 - Exam Breasts: Present: deferred Abdomen: Present: soft Uterus: Present: fundal height at umbilicus Extremities: Present: edema (trace) - Labs Labs: Abnormal lab results 03/20/20 03/20/20 Range/Units 08:20 18:18 Magnesium 6.20 H 5.70 H (1.7-2.3) mg/dL
[2020-03-21 07:13] LABS: Hematocrit 23.7 % (30.3-42.9)
[2020-03-21] MEDS: IBUPROFEN 800 MG TAB PO SCH (16:15)
[2020-03-21] MEDS: FERROUS SULFATE 325 MG TAB PO SCH ×2 (16:15→22:07)
[2020-03-21] MEDS: PHENYTOIN 100 MG CAPSULE.ER PO SCH ×2 (16:15→22:07)
[2020-03-22] MEDS: IBUPROFEN 800 MG TAB PO SCH (04:53)
--- NOTE | 2020-03-22 08:10 | Progress Note ---
Assessment and Plan - Patient Problems (1) Seizure disorder Current Visit: Yes Status: Acute Plan to address problem: Patient is clinically doing well Discharge home Schedule follow-up Subjective - Subjective Date of service: 03/22/20 Principal diagnosis: s/p at term, Eclampsia, Seizure Disorder, IUGR Interval history: The patient has completed her magnesium therapy. She denies any recent seizure activity. She reports that her pain is well controlled. Patient reports: appetite normal, voiding normally, pain well controlled : doing well Objective - Vital Signs Latest vital signs: Vital Signs Temp Pulse Resp BP BP Pulse Ox 03/21/20 23:35 98.7 F 100 H 18 138/76 99 03/21/20 18:04 98.3 F 98 H 16 131/83 97 03/21/20 17:30 99.0 F 03/21/20 17:03 72 94 03/21/20 17:00 53 L 84 03/21/20 16:58 58 L 92 03/21/20 16:55 85 03/21/20 16:52 92 H 99 03/21/20 16:47 106 H 100 03/21/20 16:42 99 H 99 03/21/20 16:37 96 H 100 03/21/20 16:32 91 H 98 03/21/20 16:27 93 H 98 03/21/20 16:22 99 H 100 03/21/20 16:17 104 H 99 03/21/20 16:12 94 H 99 03/21/20 16:07 94 H 99 03/21/20 16:02 92 H 98 03/21/20 15:57 105 H 100 03/21/20 15:52 95 H 100 03/21/20 15:47 99 H 99 03/21/20 15:42 99 H 99 03/21/20 15:37 101 H 100 03/21/20 15:35 106 H 91 03/21/20 15:32 101 H 98 03/21/20 15:30 98.7 F 03/21/20 15:27 113 H 97 03/21/20 15:24 79 L 03/21/20 15:23 100 H 133/75 03/21/20 15:08 39 L 22 L 03/21/20 15:04 105 H 98 03/21/20 14:59 102 H 97 03/21/20 14:54 111 H 98 03/21/20 14:49 108 H 98 03/21/20 14:44 104 H 97 03/21/20 14:39 105 H 97 03/21/20 14:38 106 H 129/70 03/21/20 14:34 108 H 97 03/21/20 14:29 101 H 99 03/21/20 14:24 109 H 99 03/21/20 14:19 105 H 99 03/21/20 14:14 108 H 98 03/21/20 14:09 94 H 96 03/21/20 14:04 90 97 03/21/20 13:59 90 97 03/21/20 13:54 92 H 98 03/21/20 13:49 96 H 98 03/21/20 13:44 98 H 98 03/21/20 13:39 96 H 99 03/21/20 13:38 100 H 110/74 03/21/20 13:34 101 H 100 03/21/20 13:29 104 H 99 03/21/20 13:24 107 H 99 03/21/20 13:19 147 H 77 L 03/21/20 13:18 82 L 03/21/20 13:08 153 H 85 03/21/20 13:05 108 H 121/67 98 03/21/20 13:00 102 H 99 03/21/20 12:55 102 H 98 03/21/20 12:50 102 H 98 03/21/20 12:45 99 H 98 03/21/20 12:40 93 H 98 03/21/20 12:35 100 H 98 03/21/20 12:30 98.0 F 96 H 16 98 03/21/20 12:25 96 H 97 03/21/20 12:20 102 H 97 03/21/20 12:15 100 H 97 03/21/20 12:10 91 H 97 03/21/20 12:05 94 H 97 03/21/20 12:00 91 H 99 03/21/20 11:55 87 98 03/21/20 11:50 89 98 03/21/20 11:45 81 99 03/21/20 11:40 84 98 03/21/20 11:38 80 127/84 03/21/20 11:35 87 99 03/21/20 11:30 93 H 98 10/29/20 11:25 100 H 97 03/21/20 11:20 106 H 98 03/21/20 11:15 85 99 03/21/20 11:10 89 99 03/21/20 11:05 89 99 03/21/20 11:00 89 99 03/21/20 10:55 85 100 03/21/20 10:50 92 H 100 03/21/20 10:45 95 H 100 03/21/20 10:40 94 H 97 03/21/20 10:38 104 H 123/64 03/21/20 10:35 96 H 99 03/21/20 10:30 98.4 F 95 H 15 98 03/21/20 10:25 100 H 99 03/21/20 10:20 94 H 99 03/21/20 10:15 98 H 99 03/21/20 10:10 98 H 100 03/21/20 10:06 101 H 82 L 03/21/20 10:05 91 H 97 03/21/20 10:00 75 96 03/21/20 09:59 82 94 03/21/20 09:55 80 94 03/21/20 09:53 79 94 03/21/20 09:50 82 95 03/21/20 09:48 79 94 03/21/20 09:45 82 95 03/21/20 09:42 79 94 03/21/20 09:40 82 95 03/21/20 09:38 82 128/59 03/21/20 09:36 72 94 03/21/20 09:35 80 95 03/21/20 09:31 85 94 03/21/20 09:30 87 95 03/21/20 09:25 84 94 03/21/20 09:20 94 H 93 03/21/20 09:15 89 96 03/21/20 09:10 89 96 03/21/20 09:05 82 98 03/21/20 09:00 89 98 03/21/20 08:55 91 H 98 03/21/20 08:50 90 98 03/21/20 08:46 89 119/72 03/21/20 08:45 93 H 99 Intake and Output 03/21/20 03/22/20 03/22/20 22:59 06:59 14:59 Intake Total 480 Output Total 550 Balance -550 480 Intake: Intake, Free Water 480 Output: Urine 550 Indwelling Catheter 550 Other: Total, Output Amount 200 # Voids Void 1 - Exam Abdomen: Present: normal appearance, soft Uterus: Present: normal, firm
--- NOTE | 2020-03-22 08:11 | Discharge Summary ---
Providers - Providers Date of Admission: 03/18/20 11:14 Date of discharge: 03/22/20 Attending physician: KIM ROBLES 03/20/20 18:15 Consult to Drilling And Production Superintendent [CONS] Routine Reason For Exam: assistance with , SNS Primary care physician: KIM ROBLES Hospitalization Reason for admission: induction of labor, other (Eclampsia) Delivery: Hospital course: The patient was admitted as a walk-in secondary to history of having a seizure at home. The patient was admitted and induced for presumed eclampsia. She had a spontaneous vaginal delivery and was received magnesium. Her course was uneventful. Condition at discharge: Good Disposition: DC-01 TO HOME OR SELFCARE - Discharge Diagnoses (1) Seizure disorder Status: Acute Plan - Discharge Medications Prescriptions: Phenytoin [Dilantin] 300 mg PO BID #60 capsule Ibuprofen [Motrin] 800 mg PO Q8HR PRN #30 tablet PRN Reason: Pain , Severe (7-10) HYDROcodone/APAP 5-325 [[place] 5/325] 1 each PO Q6HR PRN #15 tablet PRN Reason: Pain - Provider Discharge Summary Activity: no sex for 6 weeks, no heavy lifting 4 weeks, no strenuous exercise Diet: routine Instructions: routine Additional instructions: [] Smoking cessation referral if applicable(refer to patient education folder for contact #) [] Refer to [facility] Booklet Call your doctor immediately for: * Fever > 100.5 * Heavy vaginal bleeding ( >1 pad per hour) * Severe persistent headache * Shortness of breath * Reddened, hot, painful area to leg or breast * Schedule visit in 2 weeks - Follow up plan
[2020-03-22] MEDS: FERROUS SULFATE 325 MG TAB PO SCH (10:48)
[2020-03-22] MEDS: PHENYTOIN 100 MG CAPSULE.ER PO SCH (10:59)
[2020-03-22 14:05] VITALS: BP 127/79
== END 2020-03-22 14:30 | disposition home or self-care (01) | DRG 775 ==
LOC: TRG 09:59 → APU 09:59 → TRG 11:14 → LD 11:14 → OB 03-21 18:35
PROVIDERS: ADMIT Obstetrics & Gynecology; ATTEND Obstetrics & Gynecology
PROC: 10E0XZZ Delivery of Products of Conception, External Approach (ICD-10-PCS; principal; 2020-03-20)
PROC: 0U7C7ZZ Dilation of Cervix, Via Natural or Artificial Opening (ICD-10-PCS; 2020-03-20)
PROC: 3E0234Z Introduction of Serum, Toxoid and Vaccine into Muscle, Percutaneous Approach (ICD-10-PCS; 2020-03-21)
DX: O14.94 Unspecified pre-eclampsia, complicating childbirth (principal); G40.909 Epilepsy, unspecified, not intractable, without status epilepticus; O36.8130 Decreased fetal movements, third trimester, not applicable or unspecified; O99.354 Diseases of the nervous system complicating childbirth; O36.5930 Maternal care for other known or suspected poor fetal growth, third trimester, not applicable or unspecified; Z20.828 Contact with and (suspected) exposure to other viral communicable diseases; O71.82 Other specified trauma to perineum and vulva; Z82.49 Family history of ischemic heart disease and other diseases of the circulatory system; Z3A.38 38 weeks gestation of pregnancy; Z37.0 Single live birth; Z88.0 Allergy status to penicillin; Z90.49 Acquired absence of other specified parts of digestive tract; Z23 Encounter for immunization
CPT/HCPCS: 36415; 59200; 76816; 80307; 81001; 82565; 83615; 83735; 84450; 84460; 84550; 85014; 85018; 85027; 86592; 86706; 86762; 86803; 86850; 86900; 86901; 87086; 87806; 88307; G0378; J0595; J2405; J2590; J3010; J3475; J7120; U0003

== ENCOUNTER 2020-08-25 07:33 | Emergency (ER) | payer OTHER ==
[2020-08-25] MEDS ORDERED: METOCLOPRAMIDE 10 MG/2 ML INJ IV ONE (10:44)
[2020-08-25] MEDS ORDERED: KETOROLAC 30 MG/1 ML INJ IV ONE (10:44)
[2020-08-25] MEDS ORDERED: MAGNESIUM SULFATE 2 GM/50 ML BAG IV ONE (10:44)
[2020-08-25] MEDS ORDERED: diphenhydrAMINE 50 MG/ML VIAL IV ONE (10:44)
--- NOTE | 2020-08-25 10:50 | Emergency Department Report ---
ED Headache HPI - General Chief Complaint: Eye Problems Stated Complaint: DIZZINESS/BLURRED VISION Time Seen by Provider: 08/25/20 10:35 Source: patient Exam Limitations: no limitations - History of Present Illness Initial Comments: 35-year-old female the past medical history of seizures since a head injury at the age of 11 presents to the hospital complaints of left-sided headache and blurred vision for the last 3 days. Patient states she has had a constant throbbing left-sided headache that has fluctuated in intensity and is moderate to severe. She complains of bilateral blurry vision. She does not wear corrective lenses. Headache worse with light exposure. She denies nausea, vomiting, or focal numbness or weakness. While in the waiting room patient had a seizure lasting approximately 20 minutes that did not appear to be followed by postictal period. Patient states she slightly bit her tongue he denies urinary incontinence. She has been noncompliant with her Dilantin for the last 5 months since giving to her son. She reports a family history of migraines however, she denies a personal history of headache syndromes or migraines. No reports of fever, neck stiffness, or unsteady gait Allergies/Adverse Reactions: Allergies Penicillins Allergy (Verified 08/25/20 07:36) Swelling Home Medications: Ambulatory Orders Phenytoin [Dilantin] 300 mg PO BID 05/14/16 Phenytoin Sodium Extended [Dilantin] 100 mg PO TID 15 Days #45 capsule 06/08/18 levETIRAcetam [Keppra TAB] 500 mg PO BID 15 Days #30 tablet 06/08/18 levETIRAcetam [Keppra TAB] 500 mg PO BID 30 Days #60 tablet 08/23/19 HYDROcodone/APAP 5-325 [[place]owell 5/325] 1 each PO Q6HR PRN #15 tablet 03/22/20 Phenytoin [Dilantin] 300 mg PO BID #60 capsule 03/22/20 Butalb/Acetaminophen/Caffeine [Fioricet 50-300-40 mg CAP] 1 cap PO Q8HR PRN #20 cap 08/25/20 Ibuprofen [Motrin 800 MG tab] 800 mg PO Q8HR PRN #30 tablet 08/25/20 Phenytoin [Dilantin] 100 mg PO Q8HR #90 capsule 08/25/20 ED Review of Systems ROS: Stated complaint: DIZZINESS/BLURRED VISION Other details as noted in HPI Comment: All other systems reviewed and negative ED Past Medical Hx - Past Medical History Hx Hypertension: No Hx Congestive Heart Failure: No Hx Diabetes: No Hx Deep Vein Thrombosis: No Hx Renal Disease: No Hx Sickle Cell Disease: No Hx Seizures: Yes Hx Asthma: No Hx COPD: No Hx HIV: No - Surgical History Hx Appendectomy: Yes - Social History Smoking Status: Never Smoker Substance Use Type: None - Medications Home Medications: Home Medications Medication Instructions Recorded Confirmed Last Taken Type Phenytoin [Dilantin] 300 mg PO BID 05/14/16 03/18/20 04/16/16 10:00 History 300 MG Phenytoin Sodium Extended 100 mg PO TID 15 Days #45 capsule 06/08/18 03/18/20 Unknown Rx [Dilantin] levETIRAcetam [Keppra TAB] 500 mg PO BID 15 Days #30 tablet 06/08/18 03/18/20 03/18/20 Rx 500 levETIRAcetam [Keppra TAB] 500 mg PO BID 30 Days #60 tablet 08/23/19 03/18/20 Unknown Rx HYDROcodone/APAP 5-325 [Dowell 1 each PO Q6HR PRN #15 tablet 03/22/20 Unknown Rx 5/325] Phenytoin [Dilantin] 300 mg PO BID #60 capsule 03/22/20 Unknown Rx Butalb/Acetaminophen/Caffeine 1 cap PO Q8HR PRN #20 cap 08/25/20 Unknown Rx [Fioricet 50-300-40 mg CAP] Ibuprofen [Motrin 800 MG tab] 800 mg PO Q8HR PRN #30 tablet 08/25/20 Unknown Rx Phenytoin [Dilantin] 100 mg PO Q8HR #90 capsule 08/25/20 Unknown Rx ED Physical Exam - General Limitations: No Limitations - Other Other exam information: General: No acute distress Head: Atraumatic Eyes: normal appearance, pupils equal reactive to light, extraocular movements intact. Visual acuity left 20/50, Right 20/30, bilateral 20/30 Neck: Normal appearance, no midline tenderness Chest: Clear to auscultation bilaterally CV: Regular rate and rhythm Abdomen: Soft, normal bowel sounds, nontender, nondistended, no rebound or guarding Back: Normal inspection Extremity: Normal inspection, full range of motion Neuro: Alert O x 3, no facial asymmetry, speech clear, no gross motor sensory deficit, [id number] function at Psych: Appropriate behavior Skin: No rash ED Course Vital Signs 08/25/20 08/25/20 08/25/20 07:40 08:52 09:00 Temperature 99.5 F Pulse Rate 101 H 89 93 H Respiratory 18 36 H 23 Rate Blood Pressure 150/82 Blood Pressure [Right] O2 Sat by Pulse 100 98 98 Oximetry 08/25/20 08/25/20 08/25/20 09:30 10:00 10:30 Temperature Pulse Rate 61 75 62 Respiratory 21 26 H 22 Rate Blood Pressure Blood Pressure [Right] O2 Sat by Pulse 98 99 96 Oximetry 08/25/20 08/25/20 08/25/20 12:34 12:46 12:47 Temperature Pulse Rate 78 Respiratory 16 21 Rate Blood Pressure Blood Pressure 136/81 [Right] O2 Sat by Pulse 100 100 Oximetry ED Medical Decision Making - Lab Data Result diagrams: 08/25/20 12:15 08/25/20 12:15 Lab Results 08/25/20 08/25/20 08/25/20 Range/Units 11:18 11:18 11:49 WBC (4.5-11.0) K/mm3 RBC (3.65-5.03) M/mm3 Hgb (10.1-14.3) gm/dl Hct (30.3-42.9) % MCV (79-97) fl MCH (28-32) pg MCHC (30-34) % RDW (13.2-15.2) % Plt Count (140-440) K/mm3 Lymph % (Auto) (13.4-35.0) % Union % (Auto) (0.0-7.3) % Eos % (Auto) (0.0-4.3) % Baso % (Auto) (0.0-1.8) % Lymph # (Auto) (1.2-5.4) K/mm3 [place] # (Auto) (0.0-0.8) K/mm3 Eos # (Auto) (0.0-0.4) K/mm3 Baso # (Auto) (0.0-0.1) K/mm3 Seg Neutrophils % (40.0-70.0) % Seg Neutrophils # (1.8-7.7) K/mm3 Sodium (137-145) mmol/L Potassium (3.6-5.0) mmol/L Chloride (98-107) mmol/L Carbon Dioxide (22-30) mmol/L Anion Gap mmol/L BUN (7-17) mg/dL Creatinine (0.6-1.2) mg/dL Estimated GFR ml/min BUN/Creatinine Ratio % Glucose (65-100) mg/dL Calcium (8.4-10.2) mg/dL Magnesium (1.7-2.3) mg/dL HCG, Qual Negative (Negative) Urine Color Red (Yellow) Urine Turbidity Slightly cloudy (Clear) Urine pH TNR Ur Specific [place] TNR Urine Protein TNR Urine Glucose (UA) Color interference (Negative) mg/dL Urine Ketones Color interference (Negative) mg/dL Urine Blood TNR Urine Nitrite TNR Ur Reducing Substances TNR Urine Bilirubin Color interference (Negative) Urine Ictotest TNR Urine Urobilinogen TNR Ur Leukocyte Esterase TNR Urine WBC (Auto) 29.0 H (0.0-6.0) /HPF Urine RBC (Auto) > 182.0 (0.0-6.0) /HPF U Epithel Cells (Auto) 4.0 (0-13.0) /HPF Urine Mucus Few /HPF Urine Opiates Screen Negative Urine Methadone Screen Negative Ur Barbiturates Screen Negative Phenytoin (10.0-20.0) ug/mL Ur Phencyclidine Scrn Negative Ur Amphetamines Screen Negative U Benzodiazepines Scrn Negative Urine Cocaine Screen Negative U Marijuana (THC) Screen Positive Drugs of Abuse Note Disclamer 08/25/20 08/25/20 08/25/20 Range/Units 12:15 12:15 12:15 WBC 6.6 (4.5-11.0) K/mm3 RBC 4.53 (3.65-5.03) M/mm3 Hgb 7.9 L (10.1-14.3) gm/dl Hct 27.0 L (30.3-42.9) % MCV 60 L (79-97) fl MCH 18 L (28-32) pg MCHC 29 L (30-34) % RDW 19.9 H (13.2-15.2) % Plt Count 597 H (140-440) K/mm3 Lymph % (Auto) 22.6 (13.4-35.0) % Union % (Auto) 4.1 (0.0-7.3) % Eos % (Auto) 0.5 (0.0-4.3) % Baso % (Auto) 1.2 (0.0-1.8) % Lymph # (Auto) 1.5 (1.2-5.4) K/mm3 [place] # (Auto) 0.3 (0.0-0.8) K/mm3 Eos # (Auto) 0.0 (0.0-0.4) K/mm3 Baso # (Auto) 0.1 (0.0-0.1) K/mm3 Seg Neutrophils % 71.6 H (40.0-70.0) % Seg Neutrophils # 4.7 (1.8-7.7) K/mm3 Sodium 138 (137-145) mmol/L Potassium 3.0 L (3.6-5.0) mmol/L Chloride 103.5 (98-107) mmol/L Carbon Dioxide 26 (22-30) mmol/L Anion Gap 12 mmol/L BUN 8 (7-17) mg/dL Creatinine 0.6 (0.6-1.2) mg/dL Estimated GFR > 60 ml/min BUN/Creatinine Ratio 13 % Glucose 79 (65-100) mg/dL Calcium 8.7 (8.4-10.2) mg/dL Magnesium (1.7-2.3) mg/dL HCG, Qual Negative (Negative) Urine Color (Yellow) Urine Turbidity (Clear) Urine pH Ur Specific [place] Urine Protein Urine Glucose (UA) (Negative) mg/dL Urine Ketones (Negative) mg/dL Urine Blood Urine Nitrite Ur Reducing Substances Urine Bilirubin (Negative) Urine Ictotest Urine Urobilinogen Ur Leukocyte Esterase Urine WBC (Auto) (0.0-6.0) /HPF Urine RBC (Auto) (0.0-6.0) /HPF U Epithel Cells (Auto) (0-13.0) /HPF Urine Mucus /HPF Urine Opiates Screen Urine Methadone Screen Ur Barbiturates Screen Phenytoin (10.0-20.0) ug/mL Ur Phencyclidine Scrn Ur Amphetamines Screen U Benzodiazepines Scrn Urine Cocaine Screen U Marijuana (THC) Screen Drugs of Abuse Note 04/04/21 04/04/21 Range/Units 12:15 12:15 WBC (4.5-11.0) K/mm3 RBC (3.65-5.03) M/mm3 Hgb (10.1-14.3) gm/dl Hct (30.3-42.9) % MCV (79-97) fl MCH (28-32) pg MCHC (30-34) % RDW (13.2-15.2) % Plt Count (140-440) K/mm3 Lymph % (Auto) (13.4-35.0) % [place] % (Auto) (0.0-7.3) % Eos % (Auto) (0.0-4.3) % Baso % (Auto) (0.0-1.8) % Lymph # (Auto) (1.2-5.4) K/mm3 [place] # (Auto) (0.0-0.8) K/mm3 Eos # (Auto) (0.0-0.4) K/mm3 Baso # (Auto) (0.0-0.1) K/mm3 Seg Neutrophils % (40.0-70.0) % Seg Neutrophils # (1.8-7.7) K/mm3 Sodium (137-145) mmol/L Potassium (3.6-5.0) mmol/L Chloride (98-107) mmol/L Carbon Dioxide (22-30) mmol/L Anion Gap mmol/L BUN (7-17) mg/dL Creatinine (0.6-1.2) mg/dL Estimated GFR ml/min BUN/Creatinine Ratio % Glucose (65-100) mg/dL Calcium (8.4-10.2) mg/dL Magnesium 2.00 (1.7-2.3) mg/dL HCG, Qual (Negative) Urine Color (Yellow) Urine Turbidity (Clear) Urine pH Ur Specific [place] Urine Protein Urine Glucose (UA) (Negative) mg/dL Urine Ketones (Negative) mg/dL Urine Blood Urine Nitrite Ur Reducing Substances Urine Bilirubin (Negative) Urine Ictotest Urine Urobilinogen Ur Leukocyte Esterase Urine WBC (Auto) (0.0-6.0) /HPF Urine RBC (Auto) (0.0-6.0) /HPF U Epithel Cells (Auto) (0-13.0) /HPF Urine Mucus /HPF Urine Opiates Screen Urine Methadone Screen Ur Barbiturates Screen Phenytoin 0.8 L (10.0-20.0) ug/mL Ur Phencyclidine Scrn Ur Amphetamines Screen U Benzodiazepines Scrn Urine Cocaine Screen U Marijuana (THC) Screen Drugs of Abuse Note - EKG Data -: EKG Interpreted by Me EKG shows normal: sinus rhythm, intervals (qtc 420), ST-T waves (no stemi) Rate: bradycardia (55) - Radiology Data Radiology results: report reviewed (ct head: neg) - Medical Decision Making 35-year-old female presents to the hospital unilateral headache x3 days with visual changes. Patient feeling much better with migraine treatment of Reglan, Benadryl, magnesium, and Toradol. CT head unremarkable for acute findings. patient also had a questionable seizure while in the waiting room and has been noncompliant with her seizure medication. Mild hypokalemia treated with p.o. potassium. She received 1 g of Dilantin in the ED. Patient asymptomatic and reports feeling better tolerating p.o. intake prior to discharge Critical Care Time: No Critical care attestation.: If time is entered above; I have spent that time in minutes in the direct care of this critically ill patient, excluding procedure time. ED Disposition Clinical Impression: Migraine, Seizure, Noncompliance with medication regimen, Hypokalemia Disposition: DC-01 TO HOME OR SELFCARE Is pt being admited?: No Does the pt Need Aspirin: No Condition: Stable Instructions: Epilepsy, [id number], Migraine Headache, [id number], Potassium Content of Foods Additional Instructions: Take the medication as prescribed. Follow-up with your doctor or doctor/clinic provided. Return if symptoms worsen as indicated by your discharge instructions. Prescriptions: Phenytoin [Dilantin] 100 mg PO Q8HR #90 capsule Butalb/Acetaminophen/Caffeine [Fioricet 50-300-40 mg CAP] 1 cap PO Q8HR PRN #20 cap PRN Reason: Headache Ibuprofen [Motrin 800 MG tab] 800 mg PO Q8HR PRN #30 tablet PRN Reason: Pain , Severe (7-10) Referrals: PRIMARY MD COLETTE [Primary Care Provider] - 3-5 Days [facility] [Provider Group] - 3-5 Days (Primary care clinic) MARIANNA MAY MD [Staff Physician] - 3-5 Days (Neurologist) INDIA LOWE MD [Staff Physician] - 3-5 Days (Primary care doctor) Time of Disposition: 13:51
--- NOTE | 2020-08-25 11:29 | Cat Scan Report ---
CT head/brain wo con INDICATION / CLINICAL INFORMATION: 35 years Female; left sided headache, blurred vision, seizure. TECHNIQUE: Routine CT head without contrast. All CT scans at this location are performed using CT dos e reduction for ALARA by means of automated exposure control. COMPARISON: None. FINDINGS: BRAIN / INTRACRANIAL CONTENTS: No acute hemorrhage, mass effect, midline shift, hydrocephalus, or acu te, large territorial infarct. No signs of significant atrophy or chronic infarct. No significant whi te matter abnormality seen. CRANIOCERVICAL JUNCTION: No significant abnormality. ORBITS: No significant abnormality of visualized orbits. SINUSES / MASTOIDS: Visualized paranasal sinuses and mastoid air cells are essentially clear. ADDITIONAL FINDINGS: None. IMPRESSION: 1. No focal mass, hemorrhage, hydrocephalus, or acute, large territorial infarct. Signer Name: Sundar Borrego MD, III Signed: 08/25/2020 11:25 AM Workstation Name: [id number] [id number]
[2020-08-25] MEDS ORDERED: PHENYTOIN 1,000 MG in SODIUM CHLORIDE 0.9% 250ML 250 ML IV ONE (12:00)
[2020-08-25 12:05] LABS: Amphetamine Screen,Urine Negative; Benzodiazepines Screen,Urine Negative; Cocaine Screen,Urine Negative; Methadone Screen,Urine Negative; Opiate Screen,Urine Negative
[2020-08-25 12:10] LABS: Mucus,Urine FEW /HPF; RBC,Urine > 182.0 /HPF (0.0-6.0)
[2020-08-25 12:17] LABS: Bilirubin,Urine Color Interference (Negative); Blood,Urine TNR (Negative); Color,Urine Red (Yellow); PH,Urine TNR (5.0-7.0); Protein,Urine TNR mg/dL (Negative); Urobilinogen,Urine TNR mg/dL (<2.0)
[2020-08-25 12:18] LABS: Ictotest,Urine TNR (Negative)
[2020-08-25 12:39] LABS: Basophils # (Auto) 0.1 K/mm3 (0.0-0.1); Basophils % (Auto) 1.2 % (0.0-1.8); Eosinophils % (Auto) 0.5 % (0.0-4.3); Lymphocytes # (Auto) 1.5 K/mm3 (1.2-5.4); Lymphocytes % (Auto) 22.6 % (13.4-35.0); Mean Corpuscular HGB Conc 29 % (30-34); Monocytes # (Auto) 0.3 K/mm3 (0.0-0.8); Monocytes % (Auto) 4.1 % (0.0-7.3); Platelet Count 597 K/mm3 (140-440); Red Blood Count 4.53 M/mm3 (3.65-5.03); Red Cell Distribution Width 19.9 % (13.2-15.2)
[2020-08-25 12:43] LABS: Cannabinoid Screen,Urine Positive
[2020-08-25 12:45] LABS: Hemoglobin 7.9 gm/dl (10.1-14.3); Mean Corpuscular Volume 60 fl (79-97)
[2020-08-25 13:01] LABS: Blood Urea Nitrogen 8 mg/dL (7-17); Calcium 8.7 mg/dL (8.4-10.2); Hemolysis Index 0
[2020-08-25 13:15] LABS: BUN/Creatinine Ratio 13
[2020-08-25] MEDS ORDERED: POTASSIUM CHLORIDE ER 20 MEQ TAB PO ONE ×2 (13:16→15:45)
[2020-08-25 15:55] VITALS: BP 105/62
== END 2020-08-25 16:02 | disposition home or self-care (01) ==
LOC: ED 07:33
DX: E87.6 Hypokalemia (principal); G43.909 Migraine, unspecified, not intractable, without status migrainosus; R56.9 Unspecified convulsions; Z91.14 Patient's other noncompliance with medication regimen; Z90.49 Acquired absence of other specified parts of digestive tract; Z79.1 Long term (current) use of non-steroidal anti-inflammatories (NSAID); Z79.899 Other long term (current) drug therapy; Z88.0 Allergy status to penicillin
CPT/HCPCS: 36415; 70450; 80048; 80185; 80307; 81001; 83735; 84703; 85025; 87086; 93005; 96365; 96368; 96375; 99284; J1165; J1200; J1885; J2765; J3475; J7050